=== PATIENT | female | born 1945 | race Caucasian/White ===

== ENCOUNTER 2016-11-19 13:59 | Day surgery (SDC) | payer MEDICARE ==
[~2016-11-19] VITALS: Ht 167.6 cm; Wt 62.7 kg
--- NOTE | 2016-11-19 08:02 | PCM.HPANE ---
Patient Data Surgeon Admitting Provider: Attending Provider:Ta Sanabria MD Primary Care Physician:Faye Simpson MD Other Provider:AlidaocClarkson Anesthesia Reason for Visit Diarrhea Ht/WT & BMI Body Mass Index Allergies Coded Allergies: No Known Allergies (Verified Allergy, Unknown, 05/14/16) Past Anesthesia History Anesthesia History: Denies:: Abnormal Airway, Anesthesia Reactions, Difficult Intubation, Fam Anesthesia Reaction, Fam Malignant Hypertherm, Malignant Hyperthermia Diabetes History Hx Diabetes?: No MRSA MRSA: No Medications Reported Medications Lactobacillus Combo No.11 (Probiotic)1 Each Cap.sprink1 Each PO DAILY 05/14/16 Brimonidine Tartrate (Brimonidine 0.2% Oph Soln)5 Ml Drops1 Drop BOTH_EYES TID # 1 BOTTLE Ref 0 05/14/16 Multivitamin (Multivitamins)1 Each Capsule1 Each PO DAILY 05/14/16 Ubidecarenone/Vit E Acetate (Co Q-10 100 mg Softgel)1 Each Capsule1 Each PO DAILY 05/14/16 Cholecalciferol (Vitamin D3) (Vitamin D3)1,000 Unit Tab.chew1,000 Unit PO DAILY 05/14/16 Ca Carb & Gluc/Mag Ox & Gluc (Calcium Magnesium Caplet)1 Each Tablet2 Each PO BID 05/14/16 Resveratrol 100 Mg [id number] Mg PO DAILY 05/14/16 Discontinued Reported Medications Mesalamine (Lialda)1.2 Gm Tablet.dr1.2 Gm PO 11/18/16 Vit A/Vit C/Vit E/Zinc/Copper (Preservision Areds Tablet)1 Each Tablet1 Each PO BID 05/14/16 History History of ENT Problems?: Yes HEENT History: Positive for:: Cataracts Sinus Problem Denies:: Abnormal Airway Difficult Intubation Dysphagia Hx of Heart Problems?: No Cardiovascular History: Denies:: Congestive Heart Failure Heart Murmur Hypertension Irregular Heartbeat Pacemaker Thrombophlebitis Hx of Respiratory Problem?: No Respiratory History: Denies:: Asthma COPD Emphysema Tuberculosis Hx Neurologic Problems?: No Neurological History: Denies:: CVA Headaches Seizures Hx of GI Problems?: Yes Gastrointestinal History: Positive for:: Rectal Bleeding (Hx Colon CA) Denies:: Diverticulitis Gastroesphageal Reflux Gastrointestinal Bleeding Hiatal Hernia Genitourinary History: Positive for:: Kidney Stones Denies:: Urinary Tract Infection Female Hx: Denies:: Currently Endometriosis Pelvic Inflammatory Problems with Breasts? Hx Musculoskeletal Problems?: Yes Musculoskeletal History: Denies:: Back Injury Joint Replacement Musculoskeletal Trauma Psycho Social History: Denies:: Anxiety Hx Depression Hx Surgeries?: Yes (T&A, BREAST BX, ) Hx Any Other Health Problems?: No Other History: Positive for:: Cancer (Colorectal CA, ) Denies:: Thyroid Disease History Blood Transfusions: Denies:: Blood Transfusions Hx Diabetes: No Hx Alcohol Use: Yes ("maybe once every 2 months")Hx Substance Use: No Smoking Status: Never Smoker Have You Smoked inLast 12 mo: No Stop/Bang Risk Assessment Category Category 1A: Patient has history of documented sleep apnea, and HAS NOT received any narcotic, sedative or anesthesia administration during this stay. Category 1B: Patient has history of documented sleep apnea, and HAS received any narcotic , sedative or anesthesia administration during this stay Category 2: Patient has SUSPECTED Obstructive Sleep Apnea, and HAS received any narcotic , sedative or anesthesia administration during this stay. Category 3: Patient has SUSPECTED Obstructive Sleep Apnea and HAS NOT received narcotic, sedative or anesthesia administration during this stay. Category 4: Outpatient in Procedural Areas with known sleep apnea or who screen positive for High Risk via the STOP/BANG questionnaire. Exam Exam General Appearance: Alert, Oriented X3, Cooperative, No Acute Distress HEENT/AIRWAY: MP 2 Lungs: Clear to Auscultation, Normal Air Movement Heart: Exam Unremarkable, Regular Rate/Rhythm, No Murmurs/Rubs/Gallops Plan Impression Patient chart reviewed, patient interviewed and anesthestic plan with risks, benefits, and alternatives discussed, and informed consent obtained. ASA Physical Status: ASA2 Mod Systemic Disease Anesthetic Plan: MAC Bene/Risks/Altern/Consents: Yes HP Complete Prior to Induction: Yes Other pt concerned about POCD, desires no benzodiazepine. Brandon Thompson MD Nov 19, 2016 08:02
[~2016-11-19 13:59] MED LIST: BETA1TAB19 PO; BRIM5DRO9 BOTH_EYES; CA C1TAB86 PO; CHOL10008 PO; LACT1CAP73 PO; Lactated Ringer's 1,000 ML IV ONE; MESA1.2T2 PO; MULT1CAP33 PO; RESV100C PO; UBID1CAP52 PO
[2016-11-19] MEDS ORDERED: Propofol 10,000 mCg/mL 20 mL Inj ONE (14:00)
[2016-11-19] MEDS ORDERED: fentaNYL-PF 50 mCg/mL 2 mL Inj ONE (14:00)
[2016-11-19 14:12] VITALS: BP 144/69; PULSE 78; RESP 16; O2SAT 97
[2016-11-19] MEDS ORDERED: Lactated Ringer's 1,000 ML IV SCH (15:16)
--- NOTE | 2016-11-19 15:17 | PCM.ANEP2 ---
Post Anesthesia Evaluation ASA/CMS Post Anesthesia VS in Patient's Normal Range?: Yes Resp Stable; Airway Patent?: Yes CV Function & Hydration Stable: Yes Mental Status Recovered?: Yes Pain control Satisfactory?: Yes N/V Control Satisfactory?: Yes Brandon Thompson MD Nov 19, 2016 15:17
--- NOTE | 2016-11-19 15:17 | PCM.ANEP1 ---
Post Anesthesia Phase 1 PACU Phase 1 Assessment Vital Signs Vital Signs Date Time Temp Pulse Resp B/P Pulse Ox O2 Delivery O2 Flow Rate FiO2 11/19/16 14:12 78 16 144/69 97 Room Air Anesthetic Administered: MAC Level of Alertness: Awake, talking MONTGOMERY's with Equal Strength: Yes Pain: No Oxygen Delivery: Nasal Cannula Lungs: Clear to Auscultation, Normal Air Movement Brandon Thompson MD Nov 19, 2016 15:16
[2016-11-19] MEDS ORDERED: MetoCLOpramide 5 mg/mL 2 mL Inj IVPUSH PRN (15:20)
[2016-11-19] MEDS ORDERED: Ondansetron 2 mg/mL 2 mL Inj IVPUSH PRN (15:20)
[2016-11-19 15:22] VITALS: BP 104/58; PULSE 67; RESP 16; O2SAT 95
[2016-11-19 15:48] VITALS: BP 111/62; PULSE 62; RESP 16; O2SAT 100
--- NOTE | 2016-11-19 15:49 | ENDO ---
[address] [address] ENDOSCOPY PROCEDURE PATIENT: ARGELIA HERNANDEZ : 1945 MR#: [id number] ADMIT: 11/19/2016 JOB ID: [id number] DATE: 11/19/2016 TYPE OF OPERATION: Colonoscopy with biopsy. PREOPERATIVE DIAGNOSIS(ES): Diarrhea. POSTOPERATIVE DIAGNOSIS(ES): 1. Tortuous colonoscopy. 2. Small internal hemorrhoids. ANESTHESIA: Monitored anesthesia care. COMPLICATIONS: None. BLOOD LOSS: Minimal. DESCRIPTION OF PROCEDURE: After risks and benefits were explained to the patient, informed consent was obtained. After anesthesia administered, colonoscope was then inserted from the rectum to cecum. Mucosa carefully examined. After procedure was done, the scope was withdrawn and procedure terminated. FINDINGS: Upon inspection of the anus, no masses, hemorrhoids, ulcers, or fissures that were seen. Throughout the entire examination, the colon was quite torturous. There were no polyps or masses seen. Biopsies taken of the terminal ileum and random colon. Retroflexion showed small internal hemorrhoids. IMPRESSION: 1. Tortuous colonoscopy. 2. Small internal hemorrhoids. RECOMMENDATIONS: Await pathology results. Follow up in GI Clinic as needed.
--- NOTE | 2016-11-21 13:27 | PATH ---
SURGICAL PATHOLOGY Attending Physician:Ta Sanabria MD CASE STATUS: Signed Out PATIENT NAME: ARGELIA HERNANDEZ PID: [id number] : 1945 DATE COLLECTED:11/19/2016 00:00 SPECIMEN: 1: Ileum, Biopsy 2: Rectum, Biopsy CLINICAL HISTORY: A: TERMINAL ILEUM BIOPSY B: RECTUM COLON BIOPSY FINAL DIAGNOSIS: 1.TERMINAL ILEUM BIOPSY: SMALL BOWEL MUCOSA WITH NO DIAGNOSTIC ABNORMALITY. NEGATIVE FOR ACTIVE INFLAMMATION, DYSPLASIA AND MALIGNANCY. 2.RECTUM, BIOPSIES: RECTAL MUCOSA WITH NO SIGNIFICANT DIAGNOSTIC ABNORMALITY. NEGATIVE FOR ACTIVE, CHRONIC AND MICROSCOPIC COLITIS. NEGATIVE FOR DYSPLASIA AND MALIGNANCY. ICD10 CODE R10.9 GROSS DESCRIPTION: The specimen is received in two formalin filled containers labeled with the patient's name. 1). The specimen is sublabeled "TI" and consists of 2 portions of tissue which aggregate to 0.4 x 0.3 x 0.2 CM. The specimen is entirely submitted in cassette 1A. 2). The specimen is sublabeled "random colon" and consists of multiple fragments of tissue which aggregate to 0.4 x 0.4 x 0.3 CM. The specimen is entirely submitted in cassette 2A. 11/20/2016 [facility] MICRO DESCRIPTION: See diagnosis. ICD-9 CODES: CPT CODES: 1: 21473 2: 84328 Electronically Signed Out Faye Aldrich MD [facility] [address], [place] [address] Technical component performed at [facility], [facility] [address], [address]
== END 2016-11-19 23:59 | disposition home or self-care (01) ==
LOC: END 13:59
PROVIDERS: ATTEND Internal Medicine Gastroenterology
DX: K51.90 Ulcerative colitis, unspecified, without complications (principal); K64.8 Other hemorrhoids; Z85.048 Personal history of other malignant neoplasm of rectum, rectosigmoid junction, and anus
CPT/HCPCS: 45380; J7120